=== PATIENT | male | born 1990 | race Caucasian/White ===

== ENCOUNTER 2023-01-16 12:04 | Emergency (ER) | payer BC ==
[2023-01-16 14:32] LABS: C. TRACHOMATIS BY PCR NOT DETECTED; N. GONORRHOEAE BY PCR NOT DETECTED
[2023-01-16] MEDS ORDERED: cefTRIAXone 250 MG Vial IM ONE (14:34)
== END 2023-01-16 15:00 | disposition home or self-care (01) ==
LOC: JD.ED 12:04 → EDBD 12:04 → JD.ED 15:00
DX: Z20.89 Contact with and (suspected) exposure to other communicable diseases (principal)
CPT/HCPCS: 87491; 87591; 99282; 99283